=== PATIENT | male | born 1970 | race Caucasian/White ===

== ENCOUNTER 2019-08-12 17:39 | Emergency (ER) | payer OTHER, SELFPAY ==
[2019-08-12 17:42] VITALS: BP 162/87; PULSE 104; RESP 16; TEMP 36.8; O2SAT 97
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
[2019-08-12] MEDS: Acetaminophen 500 MG TAB 1000 MG PO (19:14)
[2019-08-12 19:17] VITALS: BP 143/85; PULSE 83; RESP 16; O2SAT 96
== END 2019-08-12 19:25 | disposition home or self-care (01) ==
PROVIDERS: Emergency Provider Emergency Medicine
DX: S16.1XXA Strain of muscle, fascia and tendon at neck level, initial encounter (principal); S09.90XA Unspecified injury of head, initial encounter; S90.31XA Contusion of right foot, initial encounter; S00.81XA Abrasion of other part of head, initial encounter; V43.52XA Car driver injured in collision with other type car in traffic accident, initial encounter
CPT/HCPCS: 99284; 70450; 72125; 73630; 99283

== ENCOUNTER 2019-09-04 08:15 | Outpatient (CLI) | payer BC, OTHER, SELFPAY ==
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
== END 2019-09-04 08:35 ==
PROVIDERS: PCP Physician Assistant; Visit Provider Internal Medicine
DX: M25.511 Pain in right shoulder (principal); M19.011 Primary osteoarthritis, right shoulder
CPT/HCPCS: 73030

== ENCOUNTER 2021-06-23 14:54 | Emergency (ER) | payer BC, SELFPAY ==
[2021-06-23 15:00] VITALS: BP 158/102; PULSE 95; RESP 18; TEMP 36.7; O2SAT 97
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
[2021-06-23] MEDS: Ibuprofen 600 MG TAB PO (15:43)
[2021-06-23 16:11] VITALS: BP 126/82; PULSE 91; RESP 18; TEMP 36.8; O2SAT 96
--- NOTE | 2021-06-23 17:26 | NUR.NOTE ---
Nursing Note: [facility] follow up of abdominal hernia, 1to 2 weeks. Rea Welch
--- NOTE | 2021-06-26 15:05 | W.ED.FU ---
at discharge patient requested a surgery referral for a chronic ventral asymptomatic abdominal hernia that he had been neglecting for years per patient but wants to see a surgeon for evaluation. HE had no abdominal tenderness at discharge.
== END 2021-06-23 17:26 | disposition home or self-care (01) ==
PROVIDERS: Emergency Provider Emergency Medicine; PCP Physician Assistant
DX: S22.42XA Multiple fractures of ribs, left side, initial encounter for closed fracture (principal); V18.0XXA Pedal cycle driver injured in noncollision transport accident in nontraffic accident, initial encounter; Y93.55 Activity, bike riding; M25.512 Pain in left shoulder; R40.2412 Glasgow coma scale score 13-15, at arrival to emergency department
CPT/HCPCS: 71250; 99285; 99284

== ENCOUNTER 2021-07-06 11:06 | Emergency (ER) | payer BC, SELFPAY ==
[2021-07-06 11:08] VITALS: BP 170/93; PULSE 89; TEMP 36.7; O2SAT 96
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
== END 2021-07-06 12:12 | disposition home or self-care (01) ==
PROVIDERS: Emergency Provider Physician Assistant; PCP Physician Assistant
DX: S22.42XD Multiple fractures of ribs, left side, subsequent encounter for fracture with routine healing (principal); V18.0XXD Pedal cycle driver injured in noncollision transport accident in nontraffic accident, subsequent encounter
CPT/HCPCS: 99283

== ENCOUNTER 2022-01-13 13:51 | Emergency (ER) | payer BC, SELFPAY ==
[2022-01-13 13:55] VITALS: BP 158/117; PULSE 101; RESP 18; TEMP 36.5; O2SAT 94
--- NOTE | 2022-01-13 14:11 | ED.GENADUL_ITS ---
Discharge Plan Disposition Patient Disposition: HOME Condition: Improving Discharge Details Clinical Impression: Laceration of left thumb Primary Care Provider: Justin Hawkins ED Provider: Gilberto Moe Home Meds and New Rx's Prescriptions: Continued calcium carbonate [Calcium 600] 600 mg calcium (1,500 mg) tablet 600 mg PO DAILY 0RF ibuprofen [Advil] 200 mg tablet 600 mg PO Q6H PRN0RF magnesium 200 mg Tablet 400 mg PO DAILY 0RF Discharge Instructions Instructions: Laceration (ED) Additional Instructions: Return for the development of a fever, foul-smelling discharge from the wound, or any other acute concerns. You may have persistent slight area of numbness overlying the thumb. Return in 7 to 10 days time for removal of sutures. Leave current bandage in place 24 to 48 hours, then may remove and once daily wash gently with soap and water, pat dry and replace bandage. Medical Decision Making Pleasant and otherwise healthy 51-year-old male presents with left thumb laceration to the volar surface. He has diminished sensation to two-point discrimination overlying a small patch adjacent to the laceration. The wound was anesthetized, liberally irrigated and examined in a bloodless field without evidence of foreign body. It was repaired with interrupted nylon sutures. Patient will return for suture removal in 7 to 10 days time. He is stable and appropriate for outpatient management. His tetanus is up-to-date. HPI General Mode of arrival: ambulatory . Date/Time Provider Initiated Documentation: 01/13/22 13:51 . Limitations to Documentation: no limitations . Information obtained by: patient . History of Present Illness 51 year old M presents to the emergency department with the chief complaint of Left thumb laceration, described as moderate, Quality is described as dull, and is localized to the left and upper extremity. Patient reports no radiation. Patient started experiencing this minute(s) improves with No relieving factors improve symptom(s), No exacerbating factors reported . Patient did receive the following treatments prior to arrival, none Related Data Home Medications Medication Instructions Recorded Confirmed calcium carbonate 600 mg calcium 600 mg PO DAILY 07/06/21 07/06/21 (1,500 mg) tablet (Calcium) ibuprofen 200 mg tablet (Advil) 600 mg PO Q6H PRN tab 07/06/21 07/06/21 magnesium 200 mg tablet 400 mg PO DAILY 07/06/21 07/06/21 Allergies Allergy/AdvReac Type Severity Reaction Status Date / Time No Known Allergies Allergy Unverified 07/06/21 11:15 General Stated Complaint: Laceration CARIE: 4 Review of Systems Narrative: Patient reports his tetanus is up-to-date. He did not injure himself in any other way. He has a small patch of numbness around the cut. 6 systems reviewed and otherwise PFSH All Active Problems (Updated 01/13/22 @ 14:30 by Gilberto Moe MD) Laceration of left thumb (Acute) Umbilical hernia (Acute) Left rib fracture (Acute) Surgical History History of umbilical hernia repair Laparoscopic about 12 to 15 years ago in [place] Social History Smoking/Tobacco Use Status: Never Smoking risk assessment performed?: Yes Alcohol Intake: current Alcohol Intake frequency: a few times a week Drug use: Occasionally Substance use type: marijuana Do you feel safe at home: Yes Do you feel safe in your relationship?: Yes Exam Narrative Exam Narrative: GEN: awake, alert, oriented 3. Pleasant, well groomed, interactive. HEAD: Normocephalic, atraumatic e EYES: PERRL, EOMI EXT: Full ROM, the left thumb has a vertically oriented 2cm laceration on the volar surface extending to the dorsal surface. There is a diminished sensation with a lack of two-point discrimination distal to this laceration, the contralateral of the volar surface of the thumb has intact 1 cm two-point discrimination Neuro: Grossly normal neurologic exam, conversant, interactive. Psych: Speech fluent, thoughts congruent, affect normal Course Vital Signs Vital signs: Vital Signs Temperature 36.5 C 01/13/22 13:55 Pulse 101 H 01/13/22 13:55 Respiratory Rate 18 01/13/22 13:55 Blood Pressure 158/117 H 01/13/22 13:55 Pulse Oximetry 94 01/13/22 13:55 Temperature 36.5 C 01/13/22 13:55 Temperature Source Tympanic 01/13/22 13:55 Pulse 101 H 01/13/22 13:55 Respiratory Rate 18 01/13/22 13:55 Respiratory Effort 01/13/22 13:58 Blood Pressure 158/117 H 01/13/22 13:55 Blood Pressure Position Sitting 01/13/22 13:55 Pulse Oximetry 94 01/13/22 13:55 Oxygen Delivery Method Room Air 01/13/22 13:55 Oxygen Flow Rate 0 01/13/22 13:55 Pain Level 5 01/13/22 13:55 Procedures Laceration Laceration 1: Site: hand Side (If applicable): left Size (cm): 2 Depth: simple, single layer Local Anesthetic: Lidocaine 1% Amount of anesthesia used (mL): 1 Pre-repair: wound explored and irrigated extensively Skin layer closed with: nylon Size (cm): 4-0 Number of sutures: 6 Technique: simple, interrupted
== END 2022-01-13 14:37 | disposition home or self-care (01) ==
PROVIDERS: Emergency Provider Emergency Medicine; PCP Physician Assistant
DX: S61.012A Laceration without foreign body of left thumb without damage to nail, initial encounter (principal); W26.0XXA Contact with knife, initial encounter
CPT/HCPCS: 12001

== ENCOUNTER 2022-01-23 15:56 | Emergency (ER) | payer BC, SELFPAY ==
[2022-01-23 16:08] VITALS: PULSE 79; RESP 18; TEMP 36.7; O2SAT 94
--- NOTE | 2022-01-23 16:34 | W.ED.GENAD ---
Discharge Plan Disposition Patient Disposition: HOME Condition: Improving Discharge Details Chief Complaint: SutureRem Clinical Impression: Visit for suture removal Primary Care Provider: Justin Hawkins ED Provider: Nicholas Franz Home Meds and New Rx's Prescriptions: No Action calcium carbonate [Calcium 600] 600 mg calcium (1,500 mg) tablet 600 mg PO DAILY ibuprofen [Advil] 200 mg tablet 600 mg PO Q6H PRN magnesium 200 mg Tablet 400 mg PO DAILY Discharge Instructions Instructions: Stitches Removal (ED) Additional Instructions: Please continue to keep wound clean and dry, please return to the emergency department if you develop signs of infection such as redness pain swelling warmth pus drainage or fever or other abnormal symptoms. Medical Decision Making 51-year-old male presents for suture removal left thumb, 6 simple interrupted sutures clean dry intact, no purulent drainage no induration no erythema, full range of motion of thumb, warm well perfused extremity, does endorse some residual numbness to the very tip of vulvar ulnar aspect of left thumb, 6 sutures removed without issue, Steri-Strips applied given home care instructions and return precautions for signs of infection. HPI General Date/Time Provider Initiated Documentation: 01/23/22 15:57. HPI Narrative: 51-year-old male presents 10 days post suture placement left thumb after lacerating it with knife opening a zip tie, no erythema purulent drainage or fevers Related Data Home Medications Medication Instructions Recorded Confirmed calcium carbonate 600 mg calcium 600 mg PO DAILY 07/06/21 07/06/21 (1,500 mg) tablet (Calcium) ibuprofen 200 mg tablet (Advil) 600 mg PO Q6H PRN 07/06/21 07/06/21 magnesium 200 mg tablet 400 mg PO DAILY 07/06/21 07/06/21 Allergies Allergy/AdvReac Type Severity Reaction Status Date / Time No Known Allergies Allergy Unverified 07/06/21 11:15 General Stated Complaint: SutureRem CARIE: 5 Review of Systems Narrative: Review of Systems Constitutional: negative Eyes: negative ENT: negative Cardiovascular: negative Respiratory: negative Gastrointestinal: negative : negative Musculoskeletal: negative Skin: Laceration to left thumb suture removal Neurologic: negative Psych: negative PFSH All Active Problems (Updated 01/23/22 @ 16:38 by Nicholas Franz MD) Laceration of left thumb (Acute) Visit for suture removal (Acute) Umbilical hernia (Acute) Left rib fracture (Acute) Surgical History History of umbilical hernia repair Laparoscopic about 12 to 15 years ago in [place] Social History Smoking/Tobacco Use Status: Never Smoking risk assessment performed?: Yes Alcohol Intake: current Alcohol Intake frequency: a few times a week Drug use: Occasionally Substance use type: marijuana Do you feel safe at home: Yes Do you feel safe in your relationship?: Yes Exam Narrative Exam Narrative: Physical Examination General: alert, awake, cooperative, resting comfortably, no acute distress HEENT: normocephalic, atraumatic; PERRL, EOM intact, conjunctiva normal; no nasal discharge; moist mucous membranes, oral and pharyngeal mucosa normal, tolerating secretions Neck: supple, trachea midline; full ROM Chest: normal to inspection Respiratory: normal respiratory effort, speaking in full sentences, clear to auscultation, no wheezing, rales or rhonchi Cardiac: regular rate, regular rhythm, S1S2 intact, no murmurs rubs or gallops GI: abdomen soft, non-tender, non-distended; no palpable mass or hepatosplenomegaly Skin 6 simple erupted sutures left thumb volar aspect, clean, dry, no signs of induration erythema or purulent drainage Neuro: AAOx3, normal speech, moving all extremities Extremities: Full range of motion of left thumb warm well perfused patient does endorse slight decrease sensation to light touch ulnar aspect of volar aspect of thumb at the tip Psych: Appropriate mood and affect Course Vital Signs Vital signs: Vital Signs Temperature 36.7 C 01/23/22 16:08 Pulse 79 01/23/22 16:08 Respiratory Rate 18 01/23/22 16:08 Pulse Oximetry 94 01/23/22 16:08 Temperature 36.7 C 01/23/22 16:08 Temperature Source Temporal Artery Scan 01/23/22 16:08 Pulse 79 01/23/22 16:08 Respiratory Rate 18 01/23/22 16:08 Pulse Oximetry 94 01/23/22 16:08 Oxygen Delivery Method Room Air 01/23/22 16:08 Oxygen Flow Rate 0 01/23/22 16:08
== END 2022-01-23 16:59 | disposition home or self-care (01) ==
PROVIDERS: Emergency Provider Emergency Medicine; PCP Physician Assistant
DX: S61.012D Laceration without foreign body of left thumb without damage to nail, subsequent encounter (principal); X58.XXXD Exposure to other specified factors, subsequent encounter; Z48.02 Encounter for removal of sutures

== ENCOUNTER 2023-06-03 14:53 | Outpatient (REF) | payer BC, SELFPAY ==
[2023-06-03 18:21] LABS: ALT 34 U/L (16-63); AST 20 U/L (15-37); Albumin 3.8 g/dL (3.4-5.0); Alkaline Phosphatase 62 U/L (46-116); Anion Gap 8.3 mmol/L (3-11); BUN 12 mg/dL (7-18); Bilirubin, Total 0.8 mg/dL (0.2-1.0); CO2 27.7 mmol/L (21.0-32.0); CREATININE 1.1 mg/dL (0.70-1.30); Calcium 9.4 mg/dL (8.5-10.1); Chloride 102 mmol/L (98-107); Estimated GFR 80.27 (mL/min/1.73m2); Glucose 109 mg/dL (74-106); Potassium 4.2 mmol/L (3.5-5.1); Sodium 138 mmol/L (136-145); Total Protein 7.3 g/dL (6.4-8.2)
== END 2023-06-03 14:54 | disposition home or self-care (01) ==
LOC: LBN 14:53
PROVIDERS: PCP Physician Assistant; Visit Provider Nurse Practitioner Family
DX: U07.1 COVID-19 (principal)
CPT/HCPCS: 80053

== ENCOUNTER 2023-09-23 21:59 | Outpatient (REF) | payer BC, SELFPAY ==
[2023-09-23 21:08] LABS: Calculated LDL 144 mg/dL (<100); Cholesterol 209 mg/dL (<200); HDL Cholesterol 47 mg/dL (40-60); Triglyceride 91 mg/dL (<150)
[2023-09-23 21:18] LABS: Hemoglobin A1C 5.7 % (<5.7)
== END 2023-09-23 22:00 | disposition home or self-care (01) ==
LOC: NCHCN 21:59
PROVIDERS: PCP Physician Assistant; Visit Provider Family Medicine
DX: E66.9 Obesity, unspecified (principal); Z13.1 Encounter for screening for diabetes mellitus
CPT/HCPCS: 80061; 83036

== ENCOUNTER 2023-11-06 12:30 | Outpatient (REF) | payer BC, SELFPAY ==
--- NOTE | 2023-11-06 10:40 | SKI_PTH ---
PATIENT: Sacha Baca LOC: [facility] U#:[id number] AGE/SX: 53/M ROOM: RE11/06/[address]: Debbi Zuniga : 1970 BED: DIS: 11/06/2023 SPEC #: [id number] RECD: 11/07/23 12:41 STATUS: FANNY REQ #: [id number] AMAURI: 11/06/23 10:[address]: Debbi Zuniga DEPT: Surgical Specimen RECD BY: Astrid Singh ENTERED: 11/07/23 12:42 SP TYPE: SKI OTHR DR: Justin Hawkins Tissues: 1 - SKIN BIOPSY(SHAVE/PUNCH) Procedures: SKIN LEVEL 4 Comments: [id number]
== END 2023-11-06 12:31 | disposition home or self-care (01) ==
LOC: NCHCN 12:30
PROVIDERS: PCP Physician Assistant; Referring Provider Family Medicine; Visit Provider Family Medicine
DX: D48.5 Neoplasm of uncertain behavior of skin (principal); L82.1 Other seborrheic keratosis
CPT/HCPCS: 88305

== ENCOUNTER 2024-04-16 18:47 | Outpatient (REF) | payer BC, SELFPAY ==
[2024-04-16 14:53] LABS: Hemoglobin A1C 5.7 % (<5.7)
[2024-04-16 14:55] LABS: ALT 36 U/L (16-63); AST 27 U/L (15-37); Albumin 3.8 g/dL (3.4-5.0); Alkaline Phosphatase 57 U/L (46-116); Anion Gap 7.5 mmol/L (3-11); BUN 18 mg/dL (7-18); Bilirubin, Total 1.36 mg/dL (0.2-1.0); CO2 29.5 mmol/L (21.0-32.0); CREATININE 1.1 mg/dL (0.70-1.30); Calcium 9.2 mg/dL (8.5-10.1); Calculated LDL 135 mg/dL (<100); Chloride 106 mmol/L (98-107); Cholesterol 197 mg/dL (<200); Estimated GFR 80.27 (mL/min/1.73m2); Glucose 113 mg/dL (74-106); HDL Cholesterol 54 mg/dL (40-60); Potassium 4.2 mmol/L (3.5-5.1); Sodium 143 mmol/L (136-145); Total Protein 6.7 g/dL (6.4-8.2); Triglyceride 43 mg/dL (<150)
== END 2024-04-16 18:48 | disposition home or self-care (01) ==
LOC: NCHCN 18:47
PROVIDERS: PCP Physician Assistant; Visit Provider Family Medicine
DX: E78.5 Hyperlipidemia, unspecified (principal); R73.01 Impaired fasting glucose; E66.9 Obesity, unspecified
CPT/HCPCS: 80053; 80061; 83036

== ENCOUNTER 2024-06-29 07:22 | Day surgery (SDC) | payer BC, SELFPAY ==
--- NOTE | 2024-06-28 10:21 | W.PREOPHP ---
Assessment and Plan Assessment and plan (1) Encounter for screening colonoscopy: Status: Acute Assessment and plan: Sacha and I were able to review the role of screening colonoscopy as part of routine health maintainence. I think he has a good understanding of the nature of the procedure and anticipated recovery. We had the opportunity to review his questions and he was able to provide informed consent. History of Present Illness History of Present Illness Chief Complaint: screening colonoscopy Narrative: 54 y/o male with history of sleep apnea presents for colonoscopy screening pre-op. He denies a family history of colon cancer. He denies any changes in bowel habits however he does believe that he has hemorrhoids, because he has noted bright red blood after wiping. Denies black tarry stools, abdominal pain, diarrhea or constipation. He denies constitutional symptoms. He denies chest pain, palpitations, dyspnea or dyspnea with exertion. He denies prior history or family history of adverse reactions or complications with anesthesia. The patient denies any history of stroke, CT, seizures, bleeding or clotting disorders. He denies having any implanted metal in his body. COUNTS INCLUDE 234 BEDS AT THE [facility] All Active Problems (Updated 06/28/24 @ 10:22 by Sacha Jacobo MD) Encounter for screening colonoscopy (Acute) Sleep apnea (Acute) Encounter for immunization (Acute) Umbilical hernia (Acute) Left rib fracture (Acute) Medical History Chronic dermatitis Inflammatory dermatosis Hemorrhoids Obesity Surgical History History of umbilical hernia repair Laparoscopic about 12 to 15 years ago in [place] Social History Smoking/Tobacco Use Status: Never Smoking risk assessment performed?: Yes Alcohol Intake: current Alcohol Intake frequency: a few times a week Drug use: Occasionally Substance use type: marijuana Housing: house Do you feel safe at home: Yes Do you feel safe in your relationship?: Yes Meds Allergies and Home Medications Allergies Allergy/AdvReac Type Severity Reaction Status Date / Time No Known Allergies Allergy Verified 06/29/24 08:00 Home Medications ?Medication ?Instructions ?Recorded ?Confirmed ?Type calcium carbonate (Calcium 600) 600 mg PO DAILY 07/06/21 06/29/24 History ibuprofen 200 mg tablet (Advil) 600 mg PO Q6H PRN 07/06/21 06/29/24 History magnesium 200 mg tablet 400 mg PO DAILY 07/06/21 06/29/24 History mometasone 0.1 % topical cream 1 applic topical DAILY PRN 12/10/23 06/29/24 History
--- NOTE | 2024-06-28 10:24 | W.PM.DSUDISC ---
Date of service: 06/29/24 Time of Service: 09:47 Discharge Plan Disposition Patient Disposition: Home Condition: Good Discharge Details Reason For Visit: screening colonoscopy Attending Provider: Sacha Jacobo Primary Care Provider: Justin Hawkins Home Meds and New Rx's Prescriptions: Continued calcium carbonate [Calcium 600] 600 mg calcium (1,500 mg) tablet 600 mg PO DAILY ibuprofen [Advil] 200 mg tablet 600 mg PO Q6H PRN mometasone 0.1 % cream 1 applic topical DAILY PRN magnesium 200 mg Tablet 400 mg PO DAILY Discontinued bisacodyl [Dulcolax (bisacodyl)] 5 mg tablet,delayed release (DR/EC) 5 mg PO ONCE Qty: 4 0RF Rx Instructions: Take per colonoscopy instructions provided by ordering providers office polyethylene glycol 3350 17 gram/dose powder 17 g PO ONCE Qty: 238 0RF Rx Instructions: Take per colonoscopy instructions provided by ordering providers office Discharge Instructions Instructions: Colon polyps Additional Instructions: Sacha, we were able to complete your colonoscopy today without any difficulty. I did find and remove 1 very small polyp. Based on its appearance, I suspect this is a hyperplastic polyp, but to be safe, I will send it off for testing. Polyps, and different varieties, and the nature of them influences the timing of the next colonoscopy. Those results usually take a week or so to become available, but as soon as the office has them, we will be in touch with those recommendations. If you need anything, or have any questions in the meantime, please do not hesitate to ask. 1. If tolerated, consume a soft, low fiber diet for 1-2 days. 2[address] Do not drive, drink alcohol, operate machinery, make critical decisions, or do activities that require coordination or balance for 24 hours. 3. Because air was put into your colon during the procedure, expelling air from your rectum (passing gas or farting) is normal. 4. You may not have a bowel movement for 1-3 days because of the colonoscopy prep. This is normal. 5. Go directly to the emergency room if you notice any of the following: Develop chills (warm to touch), or if you have a thermometer and your temperature is above 101 Difficulty breathing or difficultly swallowing Persistent vomiting Severe abdominal pain, other than gas cramps Severe chest pain Black, tarry stools Any bleeding ? exceeding one tablespoon 6. Call your physician if the site where your intravenous was started becomes red, swollen, painful, and warm to touch. 7. Your physician has reviewed your pre-procedure medications. Please continue to take those medications as previously ordered. You will be given specific information/education regarding any changes to your medications before leaving. Activity:: Activity as Tolerated Diet:: As Tolerated Discharge Orders Discharge Orders: Discharge Order (Routine); Ordered 06/28/24 Ordered By: Sacha Jacobo DS: Diagnosis Discharge Diagnosis (1) Encounter for screening colonoscopy: Status: Acute Asessment and Plan: Follow-up on polypectomy results
[2024-06-29 07:48] VITALS: BP 125/87; PULSE 72; RESP 18; TEMP 36.3; O2SAT 96
--- NOTE | 2024-06-29 08:23 | W.ANESPRE ---
General Info Date of Service Date Performed: 06/29/24 Height: 5 ft 11 in Weight: 117.8 kg Body Mass Index (BMI): 36.2 Surgical Procedure: Operation Date: 06/29/24 09:05 Proposed Procedure Side Surgeon bing Jacobo MD Meds Allergies and Home Medications Allergies Allergy/AdvReac Type Severity Reaction Status Date / Time No Known Allergies Allergy Verified 06/29/24 08:00 Home Medication ?Medication ?Instructions ?Recorded calcium carbonate (Calcium 600) 600 mg PO DAILY 07/06/21 ibuprofen 200 mg tablet (Advil) 600 mg PO Q6H PRN 07/06/21 magnesium 200 mg tablet 400 mg PO DAILY 07/06/21 mometasone 0.1 % topical cream 1 applic topical DAILY PRN 12/10/23 Current Visit Medications: Current Medications Generic Name Dose Route Start Last Admin Trade Name Freq PRN Reason Stop Dose Admin Hyoscyamine Sulfate 0.125 mg 06/28/24 10:25 Hyoscyamine 0.125 Mg Sl/Oral/Chew SL 07/28/24 10:24 DIRECTED PRN Ringer's Solution 1,000 mls @ 80 mls/hr 06/29/24 06:00 IV 06/29/24 23:59 INFUSION WHIT IV Miscellaneous Supplies 1 each 06/29/24 06:00 Iv Access IV 06/29/24 23:59 DIRECTED WHIT Ondansetron HCl 4 mg 06/28/24 10:25 Ondansetron 4 Mg/2 Ml Vial IVP 07/28/24 10:24 Q4H PRN PRN Nausea / Vomiting Sodium Chloride 0 ml 06/29/24 06:00 Normal Saline Flush 10 Ml Syr IV 06/29/24 23:59 PRN PRN Sodium Chloride 0 ml 06/29/24 06:00 Normal Saline 10 Ml Vial IJ 06/29/24 23:59 DIRECTED PRN Sterile Water 0 ml 06/29/24 06:00 Water,Injection,Sterile 10 Ml Vial IJ 06/29/24 23:59 DIRECTED PRN PFSH Active Problems Active Problems: Problem Status Onset Code Encounter for screening colonoscopy Acute Z12.11 Sleep apnea Acute G47.30 Encounter for immunization Acute Z23 Umbilical hernia Acute K42.9 Left rib fracture Acute S22.32XA Medical History Medical History Chronic dermatitis Inflammatory dermatosis Hemorrhoids Obesity Surgical History Surgical History History of umbilical hernia repair Laparoscopic about 12 to 15 years ago in [place] Tobacco Smoking/Tobacco Use Status: Never Alcohol Alcohol Intake: current Alcohol intake frequency: a few times a week Substance Use Substance use: Occasionally Substance use type: marijuana Vital Signs and Lab Results Vital Signs Most Recent Vital Signs in EMR: Most Recent Vital Signs Temp Pulse Resp BP Pulse Ox 36.3 C L 72 18 125/87 96 06/29/24 07:48 06/29/24 07:48 06/29/24 07:48 06/29/24 07:48 06/29/24 07:48 Lab Results Blood Type / Crossmatch: No Data to Display Complete Blood Count: No Data to Display Complete Metabolic Panel: No Data to Display Liver Function Panel: No Data to Display Coagulation Panel: No Data to Display Cardiac Panel: No Data to Display Arterial Blood Gas: No Data to Display Venous Blood Gas: No Data to Display Pancreas Panel: No Data to Display Thyroid Panel: No Data to Display Infectious Disease: No Data to Display Blood Cultures: No Data to Display Toxicology Panel: No Data to Display Anesthesia Assessment and Plan Anesthesia History Personal History: No History of Anesthesia Complications Family History: No Family History of Anesthesia Complications Exercise Tolerance Exercise Tolerance: Metabolic Equivalents>4 Pertinent Negatives Pertinent Negatives: No Symptoms of GERD and No Major Cardiovascular Symptoms or Complaints Cardiac & Pulmonary Exam Cardiac Exam: Normal S1/S2 Heart Sounds Pulmonary Exam: Clear Bilateral Breath Sounds Implantable Cardiac Device Does patient have a Pacemaker or an ICD?: No Airway Exam Known Difficult Airway: No Mallampati Class: 3 Mouth Opening: Normal (> 3cm) Thyromental Distance: Greater than 3 cm Facial Hair: Full Elizabeth Neck Range of Motion: Limited ROM Neck Circumference: Normal Teeth Condition: Normal Dentition ASA Classification ASA Score: ASA 3 Emergency Case?: No NPO Status NPO Status: NPO Clears >2 hours, Solids >8 hours Anesthesia Plan Resuscitation Status: Full Code Anesthesia Technique: General Anesthesia Airway Planned: Natural Airway Monitors Used: Standard Monitors
[2024-06-29 08:55] VITALS: BMI 36.2
--- NOTE | 2024-06-29 09:10 | W.PREOPHP ---
Assessment and Plan Assessment and plan (1) Encounter for screening colonoscopy: Status: Acute Assessment and plan: Sacha and I reviewed the indications for screening colonoscopy, and over the role of its importance with regards to routine health maintenance. I explained the nature of the procedure, what to expect in terms of recovery. I think Sacha is very well-informed and was able to provide consent today. We can proceed as planned. History of Present Illness History of Present Illness Chief Complaint: Screening colonoscopy Narrative: 54 y/o male with history of sleep apnea presents for colonoscopy screening pre-op. He denies a family history of colon cancer. He denies any changes in bowel habits however he does believe that he has hemorrhoids, because he has noted bright red blood after wiping. Denies black tarry stools, abdominal pain, diarrhea or constipation. He denies constitutional symptoms. He denies chest pain, palpitations, dyspnea or dyspnea with exertion. He denies prior history or family history of adverse reactions or complications with anesthesia. The patient denies any history of stroke, SC, seizures, bleeding or clotting disorders. He denies having any implanted metal in his body. Since his last office encounter there have been no major changes to the interval history or physical exam. [facility] All Active Problems (Updated 06/28/24 @ 10:22 by Sacha Jacobo MD) Encounter for screening colonoscopy (Acute) Sleep apnea (Acute) Encounter for immunization (Acute) Umbilical hernia (Acute) Left rib fracture (Acute) Medical History Chronic dermatitis Inflammatory dermatosis Hemorrhoids Obesity Surgical History History of umbilical hernia repair Laparoscopic about 12 to 15 years ago in [place] Social History Smoking/Tobacco Use Status: Never Smoking risk assessment performed?: Yes Alcohol Intake: current Alcohol Intake frequency: a few times a week Drug use: Occasionally Substance use type: marijuana Housing: house Do you feel safe at home: Yes Do you feel safe in your relationship?: Yes Meds Allergies and Home Medications Allergies Allergy/AdvReac Type Severity Reaction Status Date / Time No Known Allergies Allergy Verified 06/29/24 08:00 Home Medications ?Medication ?Instructions ?Recorded ?Confirmed ?Type calcium carbonate (Calcium 600) 600 mg PO DAILY 07/06/21 06/29/24 History ibuprofen 200 mg tablet (Advil) 600 mg PO Q6H PRN 07/06/21 06/29/24 History magnesium 200 mg tablet 400 mg PO DAILY 07/06/21 06/29/24 History mometasone 0.1 % topical cream 1 applic topical DAILY PRN 12/10/23 06/29/24 History Exam Const General: cooperative, healthy appearing and not in acute distress Neck Neck: normal visual inspection, no lymphadenopathy and supple Resp Effort & Inspection: normal respiratory effort Auscultation: clear to auscultation bilaterally Cardio Jugular venous pressure: no JVD Rate: regular rate Rhythm: regular rhythm Heart Sounds: S1 normal and S2 normal GI Inspection: normal to inspection Palpation: soft, no guarding, no hernias and nontender Percussion: normal to percussion Auscultation: normal bowel sounds Neuro General: patient alert, patient awake and patient oriented x3 Psych Appearance: grossly normal Results Last Vital Signs Temp 97.3 F L 06/29/24 07:48 Pulse 72 06/29/24 07:48 Resp 18 06/29/24 07:48 BP 125/87 06/29/24 07:48 Pulse Ox 96 06/29/24 07:48
--- NOTE | 2024-06-29 09:32 | BOWEL_PTH ---
PATIENT: Sacha Baca LOC: [facility] U#:[id number] AGE/SX: 54/M ROOM: RE06/29/[address]: Sacha Jacobo MD : 1970 BED: DIS: 06/29/2024 SPEC #: [id number] RECD: 06/29/24 12:53 STATUS: FANNY REQ #: [id number] AMAURI: 06/29/24 09:[address]: Sacha Jacobo DEPT: Surgical Specimen RECD BY: Astrid Singh ENTERED: 06/29/24 12:54 SP TYPE: Bowel OTHR DR: Justin Hawkins Tissues: 1 - BIOPSY BOWEL Procedures: GROSS AND MICRO LEVEL 4 Comments: [id number]
[2024-06-29] MEDS: Lactated Ringers 1,000 ML 80 ML IV (09:35)
[2024-06-29 09:38] VITALS: BP 120/72; PULSE 74; RESP 18; TEMP 36.3; O2SAT 95
--- NOTE | 2024-06-29 09:48 | COLE_ITS ---
Date of service: 06/29/24 Time of Service: 09:48 Colonoscopy Report Date of procedure: 06/29/24 Pre-op diagnosis general: Screening colonoscopy Post-op diagnosis procedure note: other (Colon polyp) Procedure: Colonoscopy with polypectomy Surgeon: Sacha Jacobo Anesthesia Type: General:No Airway Estimated blood loss (mL): 5 Pathology: other (0.25 cm flat polyp at 20 cm) Complications: None Disposition: same day Indications: Sacha is a 54-year-old male needs screening colonoscopy Prep: Miralax/Dulcolax Procedure Start Time: :20 Procedure End Time: 09:33 Retraction Time: 8 Findings: 0.25 cm flat polyp at 20 cm Procedure Description: After the induction of anesthesia, and with the patient in left lateral decubitus position, I began by performing an external anorectal exam.? Perineum and skin were normal, as was the anal verge.? There was no evidence of external hemorrhoids.? Next, I performed a digital rectal exam.? I did not appreciate any abnormal findings.? Next, I advanced a colonoscope into the rectal vault.? I p erformed retroflexion.? This appeared normal.? Using insufflation, I then advanced the colonoscope beyond the rectal folds and into the sigmoid colon before advancing towards the cecum.? The scope was noted to be in the cecum by identification of the ileocecal valve and appendiceal orifice.? I then began withdrawing the colonoscope using repeated irrigation as necessary for full evaluation of the colonic mucosa. Around 20 cm from the anal verge I identified a 0.25 centimeter polyp. ?It appeared flat in character. ?I was able to remove this with a cold forcep polypectomy. ?I examined the site, and there was minimal bleeding. ?Once this was completed, I continued to withdraw the scope and examine the remainder of the colonic mucosa.?Once the scope was withdrawn to the level of the rectum, great care was taken to examine portions of the rectal folds.? Finally, the scope was withdrawn and the patient was brought to the same-day surgery recovery unit as the anesthetic wore off. ?The findings and instructions were shared with the patient prior to discharge. [place] Bowel Prep [place] Bowel Prep Right Colon: 3 Left Colon: 3 Transverse Colon: 3 Total Score: 9
--- NOTE | 2024-06-29 09:50 | W.ANESPOSTOP ---
Postoperative Evaluation Date, Time and Location Date Performed: 06/29/24 Time Performed: 09:50 Patient Location: Day Surgery Unit Vital Signs Most Recent Imported Vital Signs: Most Recent Vital Signs Temp Pulse Resp BP Pulse Ox 36.3 C L 74 18 120/72 95 06/29/24 09:38 06/29/24 09:38 06/29/24 09:38 06/29/24 09:38 06/29/24 09:38 Pain Score Most Recent Pain Score: Most Recent Pain Score Pain Level 0 06/29/24 09:38 Assessment Mental Status: Awake (Alert & Oriented to Patient Baseline) Airway and Respiratory Function: Patent airway with normal (patient baseline) respiratory exam Cardiovascular Function: Hemodynamically Stable Hydration Status: Adequately Hydrated Nausea & Vomiting: No Nausea or Vomiting Pain: Pt. Denies Any Pain Peripheral Nerve Block: Patient did not receive a nerve block
[2024-06-29 10:07] VITALS: BP 135/84; PULSE 73; RESP 18; TEMP 36.2; O2SAT 94
== END 2024-06-29 10:25 | disposition home or self-care (01) ==
LOC: SUR 07:22
PROVIDERS: PCP Physician Assistant; Visit Provider Surgery
PROC: 0DJD8ZZ Inspection of Lower Intestinal Tract, Via Natural or Artificial Opening Endoscopic (ICD-10-PCS; CPT 45378; principal; 2024-06-29 09:00)
DX: Z12.11 Encounter for screening for malignant neoplasm of colon (principal); K63.5 Polyp of colon; G47.30 Sleep apnea, unspecified
CPT/HCPCS: 45380; 88305; J2704

== ENCOUNTER 2024-10-07 03:10 | Outpatient (CLI) | payer BC, SELFPAY ==
--- NOTE | 2024-10-07 15:39 | DI.RAD_ITS ---
Exam(s) XR KNEE RT 3V AP,LAT,JUSTEN EXAM: XR KNEE RT 3V AP,LAT,JUSTEN CLINICAL HISTORY: RT KNEE PAIN,M25.561. TECHNIQUE: 2D digital imaging was performed. COMPARISON: No exams were available for comparison FINDINGS: 3 views No evidence of acute fracture nor prominent joint effusion. There is no significant narrowing of the medial lateral compartments. In the patellofemoral compartm ent there are enthesophytes off the superior and inferior aspects of the patella at insertional aspec ts of the quadriceps tendon and superior patellar tendon, respectively. With respect to the inferior in these 0 fight, there is a linear lucency in it which may be variant but cannot exclude fracture a t this site if there is history of direct trauma and pain over this site. There does not appear to b e prominent soft tissue swelling on the lateral view at this level. Other findings are benign-appearing bone densities in the proximal tibia related to the anterior tibi al tubercle and posterior muscle insertion site on the posterior proximal tibial diaphysis. There ar e no ominous osseous lesions evident. IMPRESSION: Anterior patellofemoral findings as above. Correlation with site of tenderness is recommended. DATA REPOSITORY: RADIATION DOSE DELIVERED:
== END 2024-10-07 03:30 ==
LOC: DI 03:10
PROVIDERS: PCP Physician Assistant; Visit Provider Family Medicine
DX: M76.891 Other specified enthesopathies of right lower limb, excluding foot
CPT/HCPCS: 73562